=== PATIENT | female | born 1975 | race Caucasian/White ===

== ENCOUNTER 2018-03-09 10:06 | Emergency (ER) | payer BC, OTHER ==
[2015-02-23 10:10] VITALS: Wt 106.6 kg
[~2018-03-09 10:06] MED LIST: CEP500 PO; DIA5 PO; HYDR-627 PO; HYDR2TAB74 PO; LEVO-3 PO; METH-543 PO; PREN-127 PO
[2018-03-09] MEDS ORDERED: LEVO-3 PO (10:15)
--- NOTE | 2018-03-09 10:46 | ER Report ---
History and Physical Time Seen By MD: 10:43 Hx. of Stated Complaint: Pt states she received a steroid shot yesterday for chronic knee pain, started today with dizziness, feeling of warmth, pruritus and skin flushing. No airway impairment. HPI/ROS CHIEF COMPLAINT: Possible adverse reaction to injection HISTORY OF PRESENT ILLNESS: Patient is a 42-year-old female who presents to the emergency department for possible allergic reaction or adverse reaction to cortisol injection yesterday patient received a injection to her right knee for pain [facility] bone and joint. This morning she woke up was having some redness and itching to her chest wall mild shortness of breath without cough or wheeze. No chest pain or pressure. Patient has not experienced this was prior injections in the past. Denies any other known chemical exposure or allergen exposure. REVIEW OF SYSTEMS: Respiratory: No cough, no dyspnea. Cardiovascular: No chest pain, no palpitations. Gastrointestinal: No vomiting, no abdominal pain. Musculoskeletal: No back pain. Allergies: Coded Allergies: No Known Allergies (Verified Allergy, Mild, 02/22/15) Home Meds Reported Medications Levothyroxine Sodium (LEVOTHYROXINE SODIUM) 100 Mcg Tablet, 125 MCG PO QDAY, TAB 03/09/18 Discontinued Reported Medications Hydromorphone Hcl (DILAUDID) 2 Mg Tablet, 1-2 TAB PO Q6H PRN for PAIN, #60 02/23/15 Diazepam (VALIUM) 5 Mg Tablet, 5 MG PO Q6H PRN for SPASMS, #20 TAB 02/23/15 Levothyroxine Sodium (LEVOTHYROXINE SODIUM) 100 Mcg Tablet, 100 MCG PO QDAY 02/22/15 Past Medical/Surgical History Back pain, knee pain Hx Smoking: No Exposure to Second Hand Smoke?: No Hx Substance Use Disorder: No Hx Alcohol Use: No Constitutional Vital Sign - Last 24 Hours 03/09/18 10:11 Temp 97.9 Pulse 74 Resp 18 B/P (MAP) 142/79 Pulse Ox 94 O2 Delivery Room Air Physical Exam General Appearance: The patient is alert, has no immediate need for airway protection and no current signs of toxicity. Eyes: Pupils equal and round no injection. OP: Clear no angioedema no swelling uvula symmetrical Respiratory: Chest is non tender, lungs are clear to auscultation. Cardiac: regular rate and rhythm [ ] Gastrointestinal: Abdomen is soft and non tender, no masses, bowel sounds normal. Musculoskeletal: Neck: Neck is supple and non tender. Extremities have full range of motion and are non tender. Skin: No rashes or lesions. [ ] Medical Decision Making ED Course/Re-evaluation Clinical Indication for ER IV: IV Access ED Course 03/09/2018 11:06:58 am time will be IV Benadryl and IV Pepcid. We'll follow patient in the emergency department Re-evaluation 03/09/2018 11:35:19 am feeling improved at this time will discharge home Decision to Disposition Date: Mar 09, 2018 Decision to Disposition Time: 11:35 Depart Departure Latest Vital Signs Vital Signs Date Time Temp Pulse Resp B/P (MAP) Pulse Ox O2 Delivery O2 Flow Rate FiO2 03/09/18 10:11 97.9 74 18 142/79 94 Room Air Impression: Primary Impression: Allergic reaction Condition: Improved Disposition: HOME OR SELF-CARE Referrals: HARDY SANTAMARIA DO (PCP) follow up in 72 hours if your symptoms persist New Scripts Famotidine (PEPCID) 20 Mg Tablet 20 MG PO QDAY, #5 TAB 0 Refills next dose on 03/10 Prov: BERTO SOUTH MD 03/09/18 Patient Instructions: General Allergic Reaction (ED) Additional Instructions: Continue Benadryl for the next 24-48 hours as directed Problem Qualifiers Primary Impression: Allergic reaction Encounter type: initial encounter Qualified Codes: T78.40XA - Allergy, unspecified, initial encounter BERTO SOUTH MD Mar 09, 2018 10:46
[2018-03-09] MEDS ORDERED: FAMOTIDINE(*) 20MG/50ML PREMIX 50 ML IVPB ONE (10:55)
[2018-03-09] MEDS ORDERED: diphenhydrAMINE 50 MG/ML VIAL IVP ONE (10:55)
[2018-03-09 11:36] VITALS: BP 142/76
[2018-03-09] MEDS ORDERED: FAMO20TA28 PO (11:39)
== END 2018-03-09 11:51 | disposition home or self-care (01) ==
LOC: ER 10:42
DX: T78.40XA Allergy, unspecified, initial encounter (principal)
CPT/HCPCS: 96365; 96375; 99284; J1200; J3490

== ENCOUNTER → 2018-12-04 | Outpatient (CLI) | payer BC ==
[2015-02-23 10:10] VITALS: BMI 38.0
[~2018-12-04] MED LIST changes: +FAMO20TA28 PO
== END ==
LOC: LAB 09:52
PROVIDERS: ATTEND Otolaryngology
DX: E03.8 Other specified hypothyroidism (principal); E04.2 Nontoxic multinodular goiter
CPT/HCPCS: 36415; 84439; 84443

== ENCOUNTER → 2018-12-11 | Outpatient (CLI) | payer BC ==
[2015-02-23 10:10] VITALS: BMI 38.0
--- NOTE | 2018-12-11 23:03 | RADIOLOGY IMAGING REPORT ---
FACILITY: [facility] - [place] PATIENT NAME: Arielle Busby : 1975 MR: [id number] V: [id number] EXAM DATE: ORDERING PHYSICIAN: BALDOMERO HANNA TECHNOLOGIST: Location: [facility] [place] Patient: Arielle Busby : 1975 Visit/Account:[id number] Date of Sevice: 12/11/2018 THYROID HISTORY: Lesly's thyroiditis ADDITIONAL HISTORY: None. COMPARISON: February 21, 2014 FINDINGS: Thyroid size: Right lobe: 5.7 x 1.9 x 2.5 cm Left lobe: 6.0 x 1.7 x 2.2 cm Isthmus: 4 mm Thyroid echogenicity and vascularity: The thyroid lobes are diffusely heterogeneous bilaterally. Ther e is normal vascularity identified. Thyroid nodules: Right lobe: At the lower pole of the right thyroid lobe, there is a complex nodule present. Thi s measures 2.7 x 1.6 x 2.4 cm. The morphology of this lesion is consistent with a very low suspicion of malignancy, however its size is an indication for biopsy. Left lobe: At the lower pole of the left thyroid lobe, there is a 1.7 x 1.8 x 1.1 cm solid nodu le. This nodule has low suspicion morphology, however is large enough that biopsy is warranted. Isthmus: None. Inferior to the lower pole of the left thyroid lobe, there is a lymph node present. This measures 1.1 x 0.9 x 1.2 cm. IMPRESSION: Bilateral lower pole thyroid lobe nodules as described. Both of these nodules are recommended for bio psy. Report Dictated By: Leighton Adams at 12/11/2018 10:48 PM Report E-Signed By: Leighton Adams at 12/11/2018 10:55 PM WSN:[id number]
== END ==
LOC: US 02:07
PROVIDERS: ATTEND Otolaryngology
DX: E03.8 Other specified hypothyroidism (principal); E06.3 Autoimmune thyroiditis
CPT/HCPCS: 76536

== ENCOUNTER 2018-12-24 02:24 | Inpatient (IN) | payer BC ==
[2015-02-23 10:10] VITALS: Ht 172.7 cm; Wt 118.8 kg
[2018-12-21 10:34] LABS: PLATELET COUNT, AUTOMATED 286 K/uL (150-450)
[~2018-12-24] VITALS: Ht 172.7 cm; Wt 118.8 kg
[2018-12-24] VITALS (22 sets, daily range): BP systolic 111–148; BP diastolic 58–85
[2018-12-24] MEDS ORDERED: NORMOSOL R SOLN(*) 1000 ML BAG 1,000 ML IV PRN (11:20)
[2018-12-24] MEDS ORDERED: FAMOTIDINE 20 MG TAB PO ONE (11:20)
[2018-12-24] MEDS ORDERED: LIDOCAINE/SOD BICARB 8.4% SYR ID ONE (11:20)
[2018-12-24] MEDS ORDERED: ceFAZolin(*) 2GM/D5W 50ML 50 ML IVPB ONE (11:20)
[2018-12-24] MEDS ORDERED: MIDAZOLAM 2 MG/2 ML VIAL IVP PRN (11:20)
[2018-12-24] MEDS ORDERED: ROCURONIUM BR 10 MG/ML 5 ML SY 5 ML ONE (11:33)
[2018-12-24] MEDS ORDERED: fentaNYL CITR 100 MCG/2 ML AMP ONE ×3 (11:33→15:13)
[2018-12-24] MEDS ORDERED: ONDANSETRON 4 MG/2 ML VIAL ONE ×2 (11:34→15:14)
[2018-12-24] MEDS ORDERED: LIDOCAINE MPF 1% 5 ML VIAL ONE ×2 (11:34→15:14)
[2018-12-24] MEDS ORDERED: DEXAMETHASONE SOD PHOS 10MG/ML ONE ×3 (11:34→15:14)
[2018-12-24] MEDS ORDERED: KETAMINE HCL-NS 50 MG/5 ML SYR ONE ×2 (11:34→15:20)
[2018-12-24] MEDS ORDERED: PROPOFOL EMUL(*) 10MG/ML 20 ML 20 ML ONE ×2 (11:34→15:14)
[2018-12-24] MEDS ORDERED: LIDO/EPI 1% MDV 1:100,000 20ML INFIL ONE (11:44)
[2018-12-24] MEDS ORDERED: ePHEDrine 25 MG/5 ML DISP.SYR IVP ONE (11:49)
--- NOTE | 2018-12-24 11:49 | Post Operative Note ---
Operative Note - ENT Operative Day Date: Dec 24, 2018 Physicians Surgeon: Leonid Linen Folder: Richie Anesthesia: GETA Diagnosis Pre-Op Diagnosis: multinodular goiter Post-Op Diagnosis: same Procedure Procedure(s): total thyroidectomy Specimen Removed:(Maybe N/A): total thyroid Complications: none Fluids Fluids: see anesthesia note Estimated Blood Loss: 100 ml BALDOMERO HANNA JR, MD Dec 24, 2018 11:49
[2018-12-24] MEDS ORDERED: APAP/HYDROCODONE 325/5 TAB PO PRN (11:50)
[2018-12-24] MEDS ORDERED: LR(*) 1000 ML BAG 1,000 ML IV PRN (11:50)
[2018-12-24] MEDS ORDERED: ONDANSETRON 4 MG ODT TABDP SL PRN (11:50)
[2018-12-24] MEDS ORDERED: ALBUTEROL/IPRATROPIUM 3 ML NEB ONE (14:53)
[2018-12-24] MEDS: MORPHINE 2 MG/ML SYR IVP PRN (18:29)
[2018-12-24] MEDS: ceFAZolin(*) 2GM/D5W 50ML 50 ML IVPB SCH (20:48)
[2018-12-24] MEDS: CALCITRIOL 0.5 MCG CAPSULE PO SCH (20:54)
[2018-12-24] MEDS ORDERED: CALCIUM CARBONATE 500 MG CHEW PO SCH (21:00)
[2018-12-25] VITALS (22 sets, daily range): BP systolic 104–156; BP diastolic 66–85
[2018-12-25] MEDS: DEXAMETHASONE SOD PHOS 10MG/ML IVP SCH ×2 (01:11→09:35)
[2018-12-25] MEDS: MORPHINE 2 MG/ML SYR IVP PRN (04:00)
[2018-12-25] MEDS: ceFAZolin(*) 2GM/D5W 50ML 50 ML IVPB SCH ×3 (04:48→21:03)
[2018-12-25] MEDS: LEVOTHYROXINE SOD 0.125 MG TAB PO SCH (06:21)
--- NOTE | 2018-12-25 07:16 | Post Operative Note ---
Operative Note - ENT Operative Day Date: Dec 24, 2018 Physicians Surgeon: Leonid Anesthesia: GETA Diagnosis Pre-Op Diagnosis: bilateral vocal fold paresis Post-Op Diagnosis: same Procedure Procedure(s): tracheotomy Specimen Removed:(Maybe N/A): none Complications: none Fluids Fluids: see anesthesia note Estimated Blood Loss: less than 10 ml BALDOMERO HANNA JR, MD Dec 25, 2018 07:16
--- NOTE | 2018-12-25 07:20 | ENT Progress Note ---
Subjective Progress Notes Subjective Patient POD #1 total thyroidectomy complicated by bilateral vocal fold paresis and tracheotomy. Leticia po diet. Pain controlled. Physical Exam Vital Signs Date Time Temp Pulse Resp B/P (MAP) Pulse Ox O2 Delivery O2 Flow Rate FiO2 12/25/18 06:36 64 12/25/18 06:00 98.0 18 106/68 (81) 94 Cool Aerosol 35.0 12/24/18 19:15 10.0 Intake and Output 12/25/18 07:03 Intake Total 3022 ml Balance 3022 ml Intake Oral 50 ml IV Total 2947 ml Other 25 ml # Voids 5 General Appearance: Alert, Awake, No Acute Distress ENT: Other (trach in place) Result Diagram: 12/21/18 1023 Laboratory Tests Test 12/24/18 12:45 12/24/18 12:53 12/24/18 14:25 12/25/18 04:57 Parathyroid Hormone (Intact) 72 pg/ml 8 pg/ml Pending Calcium Level 8.5 mg/dl 7.9 mg/dl Assessment and Plan Problems: (1) Multinodular goiter Status: Resolved (2) Vocal fold paresis, bilateral Status: Acute Assessment & Plan: Patient with low postoperative PTH and dropping calcium. Continue calcium and rocaltrol. Will monitor closely. Saline lock IV. OOB. Continue trach care. Will engage landscape architect and planner for home trach care supplies an home health nursing. BALDOMERO HANNA JR, MD Dec 25, 2018 07:20
[2018-12-25] MEDS ORDERED: LR(*) 1000 ML BAG 1,000 ML IV PRN (08:32)
[2018-12-25] MEDS: CALCITRIOL 0.5 MCG CAPSULE PO SCH ×2 (09:36→21:03)
[2018-12-25] MEDS: CALCIUM CARBONATE 500 MG CHEW PO SCH ×3 (09:36→21:03)
--- NOTE | 2018-12-25 09:45 | NUR ---
Patient was able to suction own Trach with small amount of instructions.
--- NOTE | 2018-12-25 10:13 | Medical Nutrition Therapy ---
Nutrition Anthropometrics Height (Inches): 68.00 Height (Calculated Centimeters: [phone] Weight (Pounds): 262 Weight (Calculated Kilograms): 118.841 BMI: 39.8 Toni Nutrition Score: Probably Inadequate Toni Nutrition Risk Score: 15 Dietary Referral Nutrition Risk Factors: Nutrition Risk Comment: Physical Findings Physical Appearance: Obese BMI 30-39 Skin Appearance Skin Appearance: Edema Edema Location Modifier: Edema Location: Type of Edema: Degree of Edema: Gastrointestinal Symptoms GI Symtoms: Tube Present: Bowel Sounds: Recent Bowel Pattern: Stool Characteristics: Nutrition/Food History Multivitamins/Minerals (Vitamin D) Fair Snacks: Eats 3 meals per day, but they are small according to . Nutritional Diagnosis Nutritional Risk Acuity 4: Stable Weight Past Medical History: Hashimotos, arthritis, back pain Nutritional Acuity: 4-Low Adjusted Energy Requirement Re: 1830 (HBE-adjusted) Protein Requirement: 95 (95-118 (.8/kg-1/kg) Fluid Requirement: 2360 (20ml/kg) Diet Type: Diet as Tolerated ANETA/REG Nutrition Intervention: Cont diet as ordered Diet Comment To RSA: Allow PT to order ensure, mighty shakes or any supplements to help meet caloric needs. Nutrition Monitoring & Eval Nutrition Goals: Eat 75-100% Meal Nutrition Monitoring: Intake, weight RD Patient Assessment Time: [address] Assessment Type: RD Assessment Patient Nutrition Acuity: 4-Low Follow Up Date: Jan 01, 2019 Nutritional Comment: 12/25/2018- PT status post-thyroidectomy and trach placement unable to interview PT. Interviewed family ( and mother) on typical intake. states that PT eats "like a bird" and mother agrees with statement. Despite that, PT struggles with weight maintenance. PT is on pain medications and vitamin D. Pertinent labs include calcium at 7.9, and PTH at 8. Recommended softs foods to help with sore throat given recent trach placement and higher protein intake in order to promote healing and meet nutritional requirements. Will continue to monitor for intake, weight, and any significant changes. -KIMMY LINDSEY Dec 25, 2018 09:13
--- NOTE | 2018-12-25 13:14 | OPERATIVE REPORT 1 ---
EVENT DATE: December 24, 2018 SURGEON: Alden Jaquez MD ANESTHESIOLOGIST: Garth Huntley MD ANESTHESIA: General endotracheal. SUPERVISOR DRAWING: Carlita Quiroz CST, CSFA PROCEDURE Total thyroidectomy. PREOPERATIVE DIAGNOSIS Multinodular goiter. POSTOPERATIVE DIAGNOSIS Multinodular goiter. INDICATIONS Please refer to the preoperative note. DESCRIPTION OF PROCEDURE The patient was positively identified in the preoperative area. She was accompanied there by her . Risks were again explained including, but not limited to, bleeding, infection, injury to the recurrent laryngeal nerves, transient or permanent dysphonia, injury to the parathyroid gland, transient or permanent hypocalcemia and those associated with anesthesia. Patient acknowledged those risks. The patient was then brought back to the operative suite, placed supine on the operative table and anesthesia was administered. Of note, the laryngeal nerve monitor was applied to the patient and utilized throughout the case. The patient was then prepped and draped in usual sterile fashion. A 5 cm incision was marked overlying the thyroid gland in a favorable neck crease. The aforementioned incision was then made with a #15 blade. The underlying subcutaneous tissue was then dissected with Bovie electrocautery. The platysmal muscle was identified and divided with Bovie electrocautery. Subplatysmal flaps were elevated superiorly to the level of the thyroid notch and inferiorly to the level of the sternal notch. The strap musculature was identified and divided along the median raphe. I first elevated the strap musculature off the left thyroid lobe. This was found to be multinodular. The superior pole of vessels were skeletonized and then come across with a harmonic scalpel. I then carefully dissected the lobe from the surrounding connective tissue. Both parathyroid glands were presumed to be preserved. The recurrent laryngeal nerve was identified and traced to its entrance into the trachea. I then came across the inferior vessels with the harmonic scalp. An approximately 1 cm mass possibly consistent with ectopic thyroid tissue, lymph node or enlarged parathyroid gland was identified. This was removed and sent for permanent pathology. The patient's intraoperative PTH was 72, which is on the high end of normal. The lobe was then rotated medially and divided from the trachea at Britton's ligament with Bovie electrocautery. I then proceeded with the contralateral lobe. In a similar fashion, the strap musculature was elevated off of it. I skeletonized the superior lobe vessels and then came across these with a harmonic scalpel. I then carefully dissected the lobe from the surrounding connective tissue. Both parathyroid glands were identified and preserved. The recurrent laryngeal nerve was identified and traced to its entrance into the trachea. I then came across the inferior lobe vessels with the harmonic scalpel. I then rotated the lobe medially and divided it from the trachea at Britton's ligament. The gland was sent for permanent pathology. The wound was then copiously irrigated with normal saline solution. Hemostasis was assumed. Steve-Garcia drain was placed. The strap musculature and platysma were then reapproximated with interrupted Chromic stitch. The skin was closed in a multi-layer fashion. The patient was then turned to Anesthesia for emergence. Estimated blood loss 100 cc. There were no complications. EDWARDO
--- NOTE | 2018-12-25 18:39 | Antimicrobial Stewardship ---
Antimicrobial Stewardship Empiricly appropriate: Yes (On Ancef for total thyroidectomy post operatively.) Reviewed for Drug Interaction: Yes Monitored for Toxicities: Yes Determine cumulative duration: individualized SONIYA KEITH Dec 25, 2018 18:39
[2018-12-26] MEDS: ceFAZolin(*) 2GM/D5W 50ML 50 ML IVPB SCH (04:06)
[2018-12-26] MEDS: LEVOTHYROXINE SOD 0.125 MG TAB PO SCH (06:38)
[2018-12-26 07:11] VITALS: BP 113/70
--- NOTE | 2018-12-26 08:27 | ENT Progress Note ---
Subjective Progress Notes Subjective POD 2 s/p total thyroidectomy and trach. Leticia soft diet. Leticia PMV. No new concerns. Physical Exam Vital Signs Date Time Temp Pulse Resp B/P (MAP) Pulse Ox O2 Delivery O2 Flow Rate FiO2 12/26/18 07:11 97.9 69 12 113/70 (84) 91 Room Air 12/26/18 05:01 35.0 12/24/18 19:15 10.0 Intake and Output 12/26/18 07:03 Intake Total 892 ml Balance 892 ml Intake Oral 720 ml IV Total 172 ml # Voids 8 General Appearance: Alert, Awake, No Acute Distress Neuro: No Gross deficits Neck: Other (trach intact) Result Diagram: 12/21/18 1023 Ca 8.4 Assessment and Plan Problems: (1) Multinodular goiter Status: Resolved (2) Vocal fold paresis, bilateral Status: Acute Assessment & Plan: Calcium normalized to 8.4. Will decrease calcium and rocaltrol. Requests stool softener. Switch to po abx. Discharge planning. BALDOMERO HANNA JR, MD Dec 26, 2018 08:27
[2018-12-26] MEDS ORDERED: POLYETHYLENE GLYCOL 17 GM PKT PO ONE (08:40)
[2018-12-26] MEDS: AMOX/CLAV 875 MG TAB PO SCH ×2 (09:34→17:10)
[2018-12-26] MEDS: CALCIUM CARBONATE 500 MG CHEW PO SCH ×2 (09:34→20:43)
[2018-12-26] MEDS: CALCITRIOL 0.25 MCG CAP PO SCH ×2 (09:35→20:43)
[2018-12-26] MEDS: DOCUSATE SODIUM 100 MG CAP PO SCH ×3 (09:35→20:43)
[2018-12-26] MEDS: ACETAMINOPHEN 325 MG TAB PO PRN ×3 (10:28→23:48)
[2018-12-26 10:42] VITALS: BP 117/73
[2018-12-26 14:58] VITALS: BP 110/69
[2018-12-26 19:30] VITALS: BP 119/85
[2018-12-26 23:50] VITALS: BP 123/76
[2018-12-27 04:20] VITALS: BP 116/64
[2018-12-27] MEDS: LEVOTHYROXINE SOD 0.125 MG TAB PO SCH (05:20)
[2018-12-27 07:10] VITALS: BP 136/87
--- NOTE | 2018-12-27 07:32 | ENT Progress Note ---
Subjective Progress Notes Subjective S: Day 3 PO. Doing well. Was up frequently last night and had some secretions about every couple of hours. She did manage the suction and did her trach management all herself. She denies SOB, no chest pain. She just seems to have quite a bit of phlegm. Vital signs are stable. Afebrile O: Calcium Down--7.8. Alert, non-toxic appearing female. Trach is intact Vital signs are stable and she is afebrile. A: Hypocalcemia--7.8 P: Increase Tums 1000mg tid. Will do a Ca+ level at 1pm today. Ambien 5mg at hs prn sleep Melatonin 3-6mg at hs prn sleep Galen Simon PA-C Physical Exam Vital Signs Date Time Temp Pulse Resp B/P (MAP) Pulse Ox O2 Delivery O2 Flow Rate FiO2 12/27/18 04:20 98.7 62 20 116/64 (81) Room Air 12/26/18 23:50 92 12/26/18 19:30 28.0 12/24/18 19:15 10.0 Intake and Output0 12/27/18 07:03 Intake Total 700 ml Balance 700 ml Intake Oral 700 ml # Voids 4 # Bowel Movements 1 Result Diagram: 12/21/18 1023 Assessment and Plan Problems: (1) Multinodular goiter Status: Resolved (2) Vocal fold paresis, bilateral Status: Acute Assessment & Plan: Calcium normalized to 8.4. Will decrease calcium and rocaltrol. Requests stool softener. Switch to po abx. Discharge planning. ABHI SIMON PA-C Dec 27, 2018 07:32
[2018-12-27] MEDS: CALCIUM CARBONATE 500 MG CHEW PO SCH ×3 (08:46→21:04)
[2018-12-27] MEDS: CALCITRIOL 0.25 MCG CAP PO SCH (08:46)
[2018-12-27] MEDS: AMOX/CLAV 875 MG TAB PO SCH ×2 (08:46→17:11)
[2018-12-27] MEDS: DOCUSATE SODIUM 100 MG CAP PO SCH ×3 (08:46→21:05)
[2018-12-27] MEDS ORDERED: ALBUTEROL 1.25 MG/3ML NEB NEB PRN ×2 (12:15→14:15)
--- NOTE | 2018-12-27 13:50 | RADIOLOGY IMAGING REPORT ---
FACILITY: [facility] PATIENT NAME: Arielle Busby : 1975 MR: [id number] V: [id number] EXAM DATE: ORDERING PHYSICIAN: ABHI BOLES TECHNOLOGIST: Location: [facility] Patient: Arielle Busby : 1975 Visit/Account:[id number] Date of Sevice: 12/27/2018 Technique: CHEST PA LAT HISTORY: shortness of breath Comparison studies: 04/26/2017 FINDINGS: Tracheostomy tube is noted. There is mild bibasilar atelectasis. Lung apices are clear. Cardiac silhouette is unchanged. IMPRESSION: 1. Mild bibasilar atelectasis with no acute cardiopulmonary process. Report Dictated By: Joby Germain DO at 12/27/2018 1:36 PM Report E-Signed By: Joby Germain DO at 12/27/2018 1:41 PM WSN:[id number]
--- NOTE | 2018-12-27 14:34 | ENT Progress Note ---
Subjective Progress Notes Subjective 12/27/18 1200 S: I did see Arielle again at noon today and she is sitting in a chair. States she is a little tight in the chest and a little SOB. Coughing a bit but remains afebrile. No other concerns or issues. O: Alert, non-toxic but does appear to be breathing a little more rapidly and appears a little SOB. On exam she does have some bibasilar rhonchi and wheezing through her posterior lung arauz. A: Exacerbation of RAD Bibasilar rhonchi, possible atelectisis vs pneumonia P: Stat CXR and Albuterol via nebulizer q 4hours prn wheezing over trach. Stat Ca+ at 1300. Addendum at 1430 CXR shows atelectisis in both bases. Incentive spirometry q hour for during day. Increase nebulizer to q 2-4 hours prn. Physical Exam Vital Signs Date Time Temp Pulse Resp B/P (MAP) Pulse Ox O2 Delivery O2 Flow Rate FiO2 12/27/18 12:42 58 20 12/27/18 12:35 94 Room Air 12/27/18 07:10 28.0 12/27/18 07:10 98.0 136/87 (103) 12/24/18 19:15 10.0 Intake and Output 12/27/18 07:03 Intake Total 700 ml Balance 700 ml Intake Oral 700 ml # Voids 4 # Bowel Movements 1 Result Diagram: 12/21/18 1023 Assessment and Plan Problems: (1) Multinodular goiter Status: Resolved (2) Vocal fold paresis, bilateral Status: Acute Assessment & Plan: Calcium normalized to 8.4. Will decrease calcium and rocaltrol. Requests stool softener. Switch to po abx. Discharge planning. ABHI BOLES PA-C Dec 27, 2018 14:34
[2018-12-27] MEDS: ALBUTEROL/IPRATROPIUM 3 ML NEB NEB PRN ×2 (16:26→21:12)
[2018-12-27 17:05] VITALS: BP 128/81
[2018-12-27] MEDS ORDERED: SALMETEROL/FLUTIC 250/50 1 INH INH SCH (18:00)
[2018-12-27 19:45] VITALS: BP 129/79
[2018-12-27] MEDS ORDERED: ZOLPIDEM TARTRATE 5 MG TAB PO SCH (21:00)
[2018-12-27] MEDS: CALCITRIOL 0.5 MCG CAPSULE PO SCH (21:05)
[2018-12-27] MEDS: MELATONIN 3 MG TAB PO SCH (21:05)
[2018-12-27] MEDS: ACETAMINOPHEN 325 MG TAB PO PRN (21:42)
[2018-12-28] MEDS: ALBUTEROL/IPRATROPIUM 3 ML NEB NEB PRN ×3 (03:10→19:23)
[2018-12-28 03:39] VITALS: BP 114/76
[2018-12-28] MEDS: LEVOTHYROXINE SOD 0.125 MG TAB PO SCH (05:55)
[2018-12-28 07:10] VITALS: BP 119/73
--- NOTE | 2018-12-28 07:44 | ENT Progress Note ---
Subjective Progress Notes Subjective POD #4 s/p total thyroidectomy and tracheotomy. +BM. Breathing improved with nebulizer treatments. Improving appetite. No new concerns. Physical Exam Vital Signs Date Time Temp Pulse Resp B/P (MAP) Pulse Ox O2 Delivery O2 Flow Rate FiO2 12/28/18 03:39 98.1 71 18 114/76 (89) 91 Room Air 12/27/18 07:10 28.0 12/24/18 19:15 10.0 Intake and Output 12/28/18 07:03 Intake Total 450 ml Balance 450 ml Intake Oral 450 ml # Voids 6 # Bowel Movements 1 General Appearance: Alert, Awake, No Acute Distress Neck: Other (trach intact, sutures intact) Respiratory: No Respiratory Distress, Clear to Auscultation Result Diagram: 12/21/18 1023 Ca 7.4 Assessment and Plan Problems: (1) Multinodular goiter Status: Resolved (2) Vocal fold paresis, bilateral Status: Acute Assessment & Plan: Calcium stable. Will continue on current rocaltrol and calcium and recheck in a week. Trach care. Discharge planning for anticipated discharge Monday with trach supplies and VNS. CYNDI MEI,BALDOMERO Gomes MD Dec 28, 2018 07:44
[2018-12-28] MEDS: AMOX/CLAV 875 MG TAB PO SCH ×2 (08:45→17:20)
[2018-12-28] MEDS: CALCITRIOL 0.5 MCG CAPSULE PO SCH ×2 (08:45→20:34)
[2018-12-28] MEDS: DOCUSATE SODIUM 100 MG CAP PO SCH ×3 (08:46→20:35)
[2018-12-28] MEDS: CALCIUM CARBONATE 500 MG CHEW PO SCH ×3 (08:46→20:34)
[2018-12-28] MEDS ORDERED: predniSONE 20 MG TAB PO SCH (09:00)
--- NOTE | 2018-12-28 11:08 | OPERATIVE REPORT 1 ---
EVENT DATE: December 24, 2018 SURGEON: Alden Jaquez MD ANESTHESIOLOGIST: Garth Huntley MD ANESTHESIA: General endotracheal. PREOPERATIVE DIAGNOSES 1. Bilateral vocal fold paresis. 2. Respiratory failure. POSTOPERATIVE DIAGNOSES 1. Bilateral vocal fold paresis. 2. Respiratory failure. PROCEDURE PERFORMED Tracheotomy. INDICATIONS Bilateral vocal fold paresis, status post total thyroidectomy earlier today. DESCRIPTION OF PROCEDURE The patient was positively identified in the recovery room. She was accompanied there by her . Risks were again explained including, but not limited to, bleeding, infection, pneumothorax with loss of airway and those associated with anesthesia. The patient was then brought back to the operative suite, laid supine on the operative table and anesthesia was administered. Once asleep, the patient was positioned and prepped and draped in the usual sterile fashion. The patient's collar incision for her thyroidectomy was opened approximately 2 cm including the platysma. The strap musculature reapproximation suture stitches were released. The trachea was identified. An incision was made with a #15 blade between the third and fourth tracheal rings. The endotracheal tube was carefully brought back by the anesthesiologist under direct visualization. At this point, 0DCFN tracheostomy tube was then carefully placed to the fenestration and positioned into place. Confirmation of placement was both by direct visualization as well as positive CO2 return. The tube was then secured with four 2.0 silk sutures and tracheotomy tube tie. The patient was then transported to recovery in stable condition. ESTIMATED BLOOD LOSS Less than 10 cc. COMPLICATIONS None. MTDD
[2018-12-28 16:17] VITALS: BP 128/85
[2018-12-28] MEDS: ACETAMINOPHEN 325 MG TAB PO PRN (19:40)
[2018-12-28 19:45] VITALS: BP 131/76
[2018-12-28] MEDS: MELATONIN 3 MG TAB PO SCH (20:34)
[2018-12-28 23:26] VITALS: BP 114/71
[2018-12-29] MEDS: LEVOTHYROXINE SOD 0.125 MG TAB PO SCH (06:08)
[2018-12-29 07:15] VITALS: BP 109/68
[2018-12-29] MEDS: ALBUTEROL/IPRATROPIUM 3 ML NEB NEB PRN ×2 (08:09→14:30)
[2018-12-29] MEDS: CALCIUM CARBONATE 500 MG CHEW PO SCH ×3 (08:35→20:37)
[2018-12-29] MEDS: AMOX/CLAV 875 MG TAB PO SCH ×2 (08:35→17:26)
[2018-12-29] MEDS: DOCUSATE SODIUM 100 MG CAP PO SCH ×2 (08:35→14:00)
[2018-12-29] MEDS: CALCITRIOL 0.5 MCG CAPSULE PO SCH ×2 (08:35→20:37)
--- NOTE | 2018-12-29 09:58 | ENT Progress Note ---
Subjective Progress Notes Subjective POD #5 s/p total thyroidectomy and tracheotomy. Patient doing well. Leticia reg diet. No new concerns. Physical Exam Vital Signs Date Time Temp Pulse Resp B/P (MAP) Pulse Ox O2 Delivery O2 Flow Rate FiO2 12/29/18 08:16 60 18 12/29/18 08:09 95 Room Air 12/29/18 07:15 98.0 109/68 (82) 12/28/18 23:26 28.0 Intake and Output 12/29/18 07:03 Intake Total 600 ml Balance 600 ml Intake Oral 600 ml # Voids 4 General Appearance: Alert, No Acute Distress Neck: Other (trach intact, PMV) Assessment and Plan Problems: (1) Multinodular goiter Status: Resolved (2) Vocal fold paresis, bilateral Status: Acute Assessment & Plan: Continue trach care. Discharge planning for anticipated discharge Monday with trach supplies and VNS. CYNDI MEI,BALDOMERO Gomes MD Dec 29, 2018 09:58
[2018-12-29 11:58] VITALS: BP 125/76
[2018-12-29 16:19] VITALS: BP 121/66
[2018-12-29] MEDS: MELATONIN 3 MG TAB PO SCH (20:37)
[2018-12-29 20:41] VITALS: BP 118/87
[2018-12-30] MEDS: LEVOTHYROXINE SOD 0.125 MG TAB PO SCH (07:07)
[2018-12-30 08:02] VITALS: BP 113/75
[2018-12-30] MEDS: CALCIUM CARBONATE 500 MG CHEW PO SCH ×3 (08:32→21:15)
[2018-12-30] MEDS: AMOX/CLAV 875 MG TAB PO SCH ×2 (08:32→17:37)
[2018-12-30] MEDS: CALCITRIOL 0.5 MCG CAPSULE PO SCH ×2 (08:32→21:15)
[2018-12-30 15:37] VITALS: BP 117/80
--- NOTE | 2018-12-30 17:41 | ENT Progress Note ---
Subjective Progress Notes Subjective POD #6 s/p total thyroidectomy and tracheostomy. Patient more comfortable with trach and care. Leticia reg diet. No new concerns. Physical Exam Vital Signs Date Time Temp Pulse Resp B/P (MAP) Pulse Ox O2 Delivery O2 Flow Rate FiO2 12/30/18 15:38 56 93 12/30/18 15:37 97.5 16 117/80 (92) Room Air 12/30/18 05:39 10.0 28.0 Intake and Output 12/30/18 07:03 Intake Total 770 ml Balance 770 ml Intake Oral 770 ml # Voids 3 General Appearance: Alert, Awake, No Acute Distress Neck: Other (trach in place, sutures intact) Assessment and Plan Problems: (1) Multinodular goiter Status: Resolved (2) Vocal fold paresis, bilateral Status: Acute Assessment & Plan: Continue trach care. Plan downsizing trach at bedside tomorrow morning and home with VNS. CYNDI MEI,BALDOMERO Gomes MD Dec 30, 2018 17:41
[2018-12-30] MEDS: MELATONIN 3 MG TAB PO SCH (21:15)
[2018-12-30 21:20] VITALS: BP 135/91
[2018-12-31] MEDS: LEVOTHYROXINE SOD 0.125 MG TAB PO SCH (06:14)
[2018-12-31 08:26] VITALS: BP 123/76
[2018-12-31] MEDS: CALCIUM CARBONATE 500 MG CHEW PO SCH (08:27)
[2018-12-31] MEDS: AMOX/CLAV 875 MG TAB PO SCH (08:27)
[2018-12-31] MEDS: CALCITRIOL 0.5 MCG CAPSULE PO SCH (08:27)
[2018-12-31] MEDS ORDERED: IPRA3AMP10 NEB (08:57)
[2018-12-31] MEDS ORDERED: CALC0.5C5 PO (08:57)
[2018-12-31] MEDS ORDERED: AMOX1TAB9 PO (08:57)
--- NOTE | 2018-12-31 09:03 | Hospitalist Depart ---
Discharge Summary Reason for Hosp/Final Diag: (1) Multinodular goiter Status: Resolved (2) Vocal fold paresis, bilateral Status: Acute Hospital Course & Plan: Patient underwent planned total thyroidectomy on day of admission. This was complicated by bilateral vocal fold paresis and respiratory distress postoperatively, necessitating tracheotomy. Patient did well postoperatively. Her pain is controlled. She is tolerating a regular diet. She is discharged home with VNS for tracheotomy care. Departure Weight (Pounds): 262 Condition: Improved Discharge: Home Health Discharge Code Status: Full Code Discharge Instructions Home Meds Reported Medications Levothyroxine Sodium (LEVOTHYROXINE SODIUM) 100 Mcg Tablet, 125 MCG PO QDAY, TAB 03/09/18 Diet: Regular Activity: As Tolerated Special Instructions: Patient may shower. Keep tracheotomy tube dry. Regular diet. Normal activity. Humidified trach collar when sleeping with speaking valve off. Suction as needed. Change inner trach cannula daily. Follow up with Dr. Jaquez 01/08 at 2:30PM. Patient to take 2 regular tums TWICE a day in addition to prescribed medications. BALDOMERO JAQUEZ JR, MD Dec 31, 2018 09:03
[2019-01-02] MEDS ORDERED: MUPI22OI28 TP (14:31)
== END 2018-12-31 12:30 | disposition home health service (06) | DRG 3 ==
LOC: OR 02:24 → UNDOADMIN 17:20 → ICU 17:20
PROVIDERS: ADMIT Otolaryngology; ATTEND Otolaryngology
PROC: 0GTG0ZZ Resection of Left Thyroid Gland Lobe, Open Approach (ICD-10-PCS; 2018-12-24)
PROC: 0GTH0ZZ Resection of Right Thyroid Gland Lobe, Open Approach (ICD-10-PCS; 2018-12-24)
PROC: 0B110F4 Bypass Trachea to Cutaneous with Tracheostomy Device, Open Approach (ICD-10-PCS; principal; 2018-12-24 11:46)
DX: E04.2 Nontoxic multinodular goiter (principal); J96.00 Acute respiratory failure, unspecified whether with hypoxia or hypercapnia; J38.02 Paralysis of vocal cords and larynx, bilateral; E83.51 Hypocalcemia; E06.3 Autoimmune thyroiditis; Y83.8 Other surgical procedures as the cause of abnormal reaction of the patient, or of later complication, without mention of misadventure at the time of the procedure; Y82.8 Other medical devices associated with adverse incidents; Y92.230 Patient room in hospital as the place of occurrence of the external cause
CPT/HCPCS: 36415; 71046; 82310; 83735; 83970; 84703; 85025; 94640; 94667; 99211; J0690; J1100; J2001; J2270; J2405; J2704; J3010; J3490; J7120; J7613

== ENCOUNTER → 2019-01-08 | Outpatient (CLI) | payer BC ==
[2015-02-23 10:10] VITALS: BMI 38.0
[~2019-01-08] MED LIST changes: +AMOX1TAB9 PO; +CALC0.5C5 PO; +CLIN300C99 PO; +IPRA3AMP10 NEB; +MUPI22OI28 TP
== END ==
LOC: LAB 14:58
PROVIDERS: ATTEND Otolaryngology
DX: E83.51 Hypocalcemia (principal)
CPT/HCPCS: 36415; 82310

== ENCOUNTER 2019-01-10 17:06 | Emergency (ER) | payer BC ==
[2015-02-23 10:10] VITALS: Wt 115.7 kg
[~2019-01-10 17:06] MED LIST changes: -CLIN300C99 PO
--- NOTE | 2019-01-10 17:14 | ER Report ---
History and Physical Time Seen By MD: 17:10 HPI/ROS s/p complete thyroidectomy with subsequent vocal cord dysfunction requiring trach. Fever today. Trach replaced by Dr. Forte today. No abdominal pain, no dysuria. Remainder of the 14 system rev: Yes Allergies: Coded Allergies: Sulfa (Sulfonamide Antibiotics) (Verified Allergy, Intermediate, rash, 01/10/19) cortisone (Verified Allergy, Mild, DIZZINESS, 03/09/18) flushing of skin bacitracin (Verified Allergy, Unknown, 12/19/18) blistering after last surgery polymyxin B (Verified Allergy, Unknown, 12/19/18) blistering after last surgery Home Meds Active Scripts Clindamycin Hcl (CLINDAMYCIN HCL) 300 Mg Capsule, 300 MG PO Q6H, #40 CAPSULE Prov:SAGE ANDRADE MD 01/10/19 Mupirocin (MUPIROCIN) 22 Gm Oint...g., 1 FANTA TP TID for 7 Days, #1 TUBE Apply on skin around trach Prov:BALDOMERO JAQUEZ JR, MD 01/02/19 Ipratropium/Albuterol Sulfate (IPRAT-ALBUT 0.5-3(2.5) MG/3 ML) 3 Ml Ampul.neb, 3 ML NEB Q4HR PRN for SHORTNESS OF BREATH for 30 Days, #30 BOT 1 Refill Prov:BALDOMERO JAQUEZ JR, MD 12/31/18 Calcitriol (CALCITRIOL) 0.5 Mcg Capsule, 0.5 MCG PO BID for 30 Days, #60 CAPSULE Prov:BALDOMERO JAQUEZ JR, MD 12/31/18 Amoxicillin/Potassium Clav (AMOX TR-K CLV 875-125 MG TAB) 1 Each Tablet, 875 MG PO BID for 7 Days, #14 TAB Prov:BALDOMERO JAQUEZ JR, MD 12/31/18 Reported Medications Levothyroxine Sodium (LEVOTHYROXINE SODIUM) 100 Mcg Tablet, 125 MCG PO QDAY, TAB 03/09/18 Hx Smoking: No Smoking Status: Never Smoker Exposure to Second Hand Smoke?: No Hx Substance Use Disorder: No Hx Alcohol Use: No Constitutional Vital Sign - Last 24 Hours 01/10/19 17:11 Temp 100.4 Pulse 103 Resp 24 B/P (MAP) 109/66 Pulse Ox 90 Physical Exam General Appearance: The patient is alert, has no immediate need for airway protection and no current signs of toxicity. HEENT: trach in place, no erythema of skin. No drainage from trach. Eyes: Pupils equal and round no injection. Respiratory: Chest is non tender, lungs are clear to auscultation. Cardiac: regular rate and rhythm Gastrointestinal: Abdomen is soft and non tender, no masses, bowel sounds normal. Neck: Neck is supple and non tender. Extremities have full range of motion and are non tender. Skin: No rashes or lesions. DIFFERENTIAL DIAGNOSIS: After history and physical exam differential diagnosis was considered for adult fever including but not limited to viral syndromes including influenza, urinary tract infection, pneumonia and sepsis. Medical Decision Making Data Points Result Diagram: 01/10/19 1710 01/10/19 1710 Laboratory Hematology Test 01/10/19 17:10 White Blood Count 12.8 k/uL (4.5-11.0) H Red Blood Count 4.79 M/uL (4.17-5.56) Hemoglobin 14.0 g/dL (12.0-16.0) Hematocrit 42.5 % (34.0-47.0) Mean Corpuscular Volume 88.7 fL (80.0-96.0) Mean Corpuscular Hemoglobin 29.2 pg (26.0-33.0) Mean Corpuscular Hemoglobin Concent 32.9 g/dL (32.0-36.0) Red Cell Distribution Width 12.7 % (11.5-14.5) Platelet Count 301 K/uL (150-450) Mean Platelet Volume 9.5 fL (7.2-11.1) Neutrophils (%) (Auto) 82.2 % (39.4-72.5) H Lymphocytes (%) (Auto) 9.4 % (17.6-49.6) L Monocytes (%) (Auto) 7.0 % (4.1-12.4) Eosinophils (%) (Auto) 0.7 % (0.4-6.7) Basophils (%) (Auto) 0.5 % (0.3-1.4) Nucleated RBC Relative Count (auto) 0.0 /100WBC Neutrophils # (Auto) 10.5 K/uL (2.0-7.4) H Lymphocytes # (Auto) 1.2 K/uL (1.3-3.6) L Monocytes # (Auto) 0.9 K/uL (0.3-1.0) Eosinophils # (Auto) 0.1 K/uL (0.0-0.5) Basophils # (Auto) 0.1 K/uL (0.0-0.1) Nucleated RBC Absolute Count (auto) 0.00 K/uL Chemistry Test 01/10/19 17:10 Sodium Level 138 mmol/L (137-145) Potassium Level 3.7 mmol/L (3.5-5.0) Chloride Level 102 mmol/L (98-107) Carbon Dioxide Level 24 mmol/L (22-31) Blood Urea Nitrogen 10 mg/dl (7-18) Creatinine 0.70 mg/dl (0.52-1.04) Glomerular Filtration Rate Calc > 60.0 Random Glucose 106 mg/dl (75-110) Lactate 1.1 mmol/L (0.7-2.1) Calcium Level 9.2 mg/dl (8.4-10.2) Total Bilirubin 1.6 mg/dl (0.2-1.3) Aspartate Amino Transf (AST/SGOT) 22 U/L (0-35) Alanine Aminotransferase (ALT/SGPT) 28 U/L (0-56) Alkaline Phosphatase 102 U/L (0-126) Total Protein 8.0 g/dl (6.3-8.2) Albumin 4.4 g/dl (3.5-5.0) Coagulation Test 01/10/19 17:10 D-Dimer Quantitative (PE/DVT) 0.31 ug/ml (0-0.50) Urinalysis Test 01/10/19 17:35 Urine Color Yellow Urine Clarity Clear Urine pH 9.0 pH (4.8-9.5) Urine Specific English 1.013 Urine Protein Negative mg/dL (NEGATIVE) Urine Glucose (UA) Negative mg/dL (NEGATIVE) Urine Ketones Negative mg/dL (NEGATIVE) Urine Blood Negative (NEGATIVE) Urine Nitrite Negative (NEGATIVE) Urine Bilirubin Negative (NEGATIVE) Urine Urobilinogen Negative mg/dL (0.2-1.9) Urine Leukocyte Esterase Negative (NEGATIVE) Urine RBC 1 /HPF (0-2/HPF) Urine WBC <1 /HPF (0-5/HPF) Urine Squamous Epithelial Cells Many /LPF (NONE-FEW) Urine Bacteria Negative /HPF (NONE-FEW) Urine Mucus None /HPF (NONE-FEW) ED Course/Re-evaluation ED Course Mild SOB and fever for part 2-3 days. Trach changed out today. Denies abdominal pain, dysuria, headache, neck pain. No rashes. Negative dimer and HR normalized with fluids and tylenol. CXR normal. Possible tracheitis given recent events. WIll d/c with Clindamycin. Spoke with Dr. Jaquez who will follow up with the patient. Decision to Disposition Date: Jan 10, 2019 Decision to Disposition Time: 19:15 Depart Departure Latest Vital Signs Vital Signs Date Time Temp Pulse Resp B/P (MAP) Pulse Ox O2 Delivery O2 Flow Rate FiO2 01/10/19 17:11 100.4 103 24 109/66 90 Impression: Primary Impression: Tracheitis Condition: Improved Disposition: HOME OR SELF-CARE Referrals: HARDY SANTAMARIA DO (PCP) New Scripts Clindamycin Hcl (CLINDAMYCIN HCL) 300 Mg Capsule 300 MG PO Q6H, #40 CAPSULE Prov: SAGE ANDRADE MD 01/10/19 Additional Instructions: Take Clindamycin as directed. Contact Dr. Jaquez with any further concerns. Follow up with with Dr. Jaquez on Monday as previously scheduled. SAGE ANDRADE MD Jan 10, 2019 17:14
[2019-01-10] MEDS ORDERED: VANCOMYCIN(*) 1 GM VIAL 1 GM in NS(*) 0.9% 250 ML BAG 250 ML IVPB ONE (17:20)
[2019-01-10] MEDS ORDERED: NS(*) 0.9% 1000 ML BAG 1,000 ML IV ONE (17:20)
[2019-01-10] MEDS ORDERED: PIPERACILLIN/TAZO*3.375GM VIAL 3.375 GM in NS(*) 0.9% 100 ML MINI-BAG 100 ML IVPB ONE (17:20)
[2019-01-10] MEDS ORDERED: ACETAMINOPHEN 500 MG TAB PO ONE (17:25)
[2019-01-10] MEDS ORDERED: VANCOMYCIN(*) 1 GM VIAL 2.5 GM in NS(*) 0.9% 500 ML BAG 500 ML IVPB ONE (17:30)
--- NOTE | 2019-01-10 17:49 | RADIOLOGY IMAGING REPORT ---
FACILITY: [facility] PATIENT NAME: Arielle Busby : 1975 MR: [id number] V: [id number] EXAM DATE: ORDERING PHYSICIAN: SAGE ANDRADE TECHNOLOGIST: Location: [facility] Patient: Arielle Busby : 1975 Visit/Account:[id number] Date of Sevice: 01/10/2019 CHEST SINGLE AP HISTORY: Cough. Fever. COMPARISON: Chest x-ray December 27, 2018. FINDINGS: Cardiomediastinal contours: The heart size is normal. Lungs and pleura: There is no finding of an infiltrate, lymphadenopathy or pleural effusion. Bones/soft tissues: There are no findings of a fracture. Catheters: The tracheostomy tube is unchanged in position. IMPRESSION: 1. Stable chest x-ray. 2. Stable appearance of tracheostomy tube. Report Dictated By: Mika Coyle MD at 01/10/2019 5:40 PM Report E-Signed By: Mika Coyle MD at 01/10/2019 5:40 PM WSN:[email or web address]
[2019-01-10 17:56] LABS: PLATELET COUNT, AUTOMATED 301 K/uL (150-450)
[2019-01-10] MEDS ORDERED: CLIN300C99 PO (19:04)
[2019-01-10 19:15] VITALS: BP 123/49
== END 2019-01-10 19:36 | disposition home or self-care (01) ==
LOC: ER 17:20
DX: J04.10 Acute tracheitis without obstruction (principal)
CPT/HCPCS: 81001; 83605; 84443; 85025; 85379; 87040; 87088; 96365; 96368; J2543; J3370; J7030; J7040; 71045; 82040; 82247; 82310; 82374; 82435; 82565; 82947; 84075; 84132; 84155; 84295; 84450; 84460; 84520